=== PATIENT | male | born 1975 | race Caucasian/White ===

== ENCOUNTER 2018-06-20 07:27 | Day surgery (SDC) | payer BC ==
[~2018-06-20 07:27] MED LIST: CEFAZOLIN 2 GM/50 ML (PMX) 50 ML IVPB; SOD CHLORIDE 0.9% 1,000 ML IV
[2018-06-20 08:43] LABS: ADD MAN DIFF? NO
[2018-06-20 08:46] LABS: BASOPHILS % 0.5 % (0.0-2.0); EOSINOPHILS # 0.1 10^3/ul (0.0-0.5); EOSINOPHILS % 1.7 % (0.0-7.0); HEMATOCRIT 40.7 % (42.0-52.0); LYMPHOCYTES % 31.7 % (15.0-51.0); MEAN CORPUSCULAR HEMOGLOBIN 29.8 pg (29.0-33.0); MEAN CORPUSCULAR HGB CONC 34.4 g/dl (32.0-37.0); MEAN CORPUSCULAR VOLUME 86.6 fl (82.0-101.0); MEAN PLATELET VOLUME 11.7 fl (7.4-10.4); MONOCYTE # 0.5 10^3/ul (0.3-0.9); MONOCYTES % 7.9 % (0.0-11.0); NEUTROPHIL # 3.7 10^3/ul (1.6-7.5); NEUTROPHILS % 57.7 % (39.0-77.0); PLATELET COUNT 227 10^3/UL (140-415); RED CELL DISTRIBUTION WIDTH 12.1 % (11.5-14.5)
[2018-06-20 08:46] LABS: WHITE BLOOD COUNT 6.4 10^3/ul (4.8-10.8)
[2018-06-20 09:01] LABS: ALANINE AMINOTRANSFERASE 28 IU/L (13-69); ALBUMIN 4.4 g/dl (3.3-4.9); ALBUMIN/GLOBULIN RATIO 1.33; ALKALINE PHOSPHATASE 34 IU/L (42-121); ANION GAP 14 (8-16); ASPARTATE AMINO TRANSFERASE 20 IU/L (15-46); BILIRUBIN,INDIRECT 0.5 mg/dl (0-1.1); BILIRUBIN,TOTAL 0.5 mg/dl (0.2-1.3); BLOOD UREA NITROGEN 16 mg/dl (7-20); CALCIUM 9.4 mg/dl (8.4-10.2); CARBON DIOXIDE 25 mmol/L (21-31); CHLORIDE 107 mmol/L (97-110); CREATININE 0.83 mg/dl (0.61-1.24); GLUCOSE 105 mg/dl (70-220); POTASSIUM 4.3 mmol/L (3.5-5.1); SODIUM 142 mmol/L (135-144); TOTAL PROTEIN 7.7 g/dl (6.1-8.1)
[2018-06-20 09:05] LABS: INR 0.89; PARTIAL THROMBOPLASTIN TIME 31.2 Sec (25.0-35.0); PROTIME 12.1 Sec (11.9-14.9); PT RATIO 0.9
[2018-06-20] MEDS ORDERED: ROCURONIUM 50 MG INJ (09:17)
[2018-06-20] MEDS ORDERED: NEOSTIGMINE 3 MG/3 ML SYRINGE (09:17)
[2018-06-20] MEDS ORDERED: ONDANSETRON 4 MG INJ ×2 (09:17→11:21)
[2018-06-20] MEDS ORDERED: GLYCOPYRROLATE 0.4 MG INJ (09:17)
[2018-06-20] MEDS ORDERED: FENTAnyl 50 MCG/ML VIAL (09:17)
[2018-06-20] MEDS ORDERED: CEFAZOLIN 1 GM INJ (09:17)
[2018-06-20] MEDS ORDERED: DEXAMETHASONE 4 MG/ML 1 ML INJ (09:17)
[2018-06-20] MEDS ORDERED: MIDAZOLAM 1 MG/ML 2 ML INJ (09:17)
[2018-06-20] MEDS ORDERED: PROPOFOL 20 ML (09:17)
[2018-06-20] MEDS ORDERED: BUPIVACAINE 0.25% (MPF) 30 ML INJ ×2 (09:18→09:59)
[2018-06-20] MEDS ORDERED: POLYMYXIN/BACITRACIN 1L IRRIG (09:59)
[2018-06-20] MEDS ORDERED: BACITRACIN 50000 UNITS INJ (10:08)
[2018-06-20] MEDS ORDERED: KETOROLAC 30 MG INJ (10:46)
[2018-06-20] MEDS ORDERED: SUGAMMADEX SODIUM 200 MG/2 ML VIAL IV (11:00)
[2018-06-20] MEDS ORDERED: HYDROmorphONE 1 MG/5 ML IV SYRINGE IV ×2 (11:21→11:30)
[2018-06-20] MEDS: HYDROmorphONE 1 MG/5 ML IV SYRINGE IV ×2 (11:25→11:33)
[2018-06-20] MEDS: ONDANSETRON 4 MG INJ IV (11:25)
[2018-06-20] MEDS ORDERED: ALBUTEROL 0.083% (NEB) 2.5 MG/3 ML AMP HHN (11:30)
[2018-06-20] MEDS ORDERED: FENTAnyl 50 MCG/ML VIAL IV ×3 (11:30)
[2018-06-20] MEDS ORDERED: EPHEDrine SULFATE 50 MG/5 ML SYG IV (11:30)
[2018-06-20] MEDS ORDERED: MEPERIDINE 25 MG INJ IV (11:30)
[2018-06-20] MEDS ORDERED: LABETALOL HCL 20MG INJ IV (11:30)
[2018-06-20] MEDS ORDERED: MIDAZOLAM 1 MG/ML 2 ML INJ IV (11:30)
[2018-06-20] MEDS ORDERED: TRIMETHOBENZAMIDE 100 MG/ML VIAL IM (11:30)
[2018-06-20] MEDS ORDERED: OXYCODONE/ACETAMINOPHEN (5/325) TAB PO (11:30)
[2018-06-20] MEDS ORDERED: hydrALAzine 20 MG INJ IV (11:30)
[2018-06-20] MEDS ORDERED: IPRATROPIUM (NEB) 0.5 MG/2.5 ML AMP HHN (11:30)
[2018-06-20] MEDS ORDERED: DIPHENHYDRAMINE 50 MG INJ IV (11:30)
[2018-06-20] MEDS: OXYCODONE/ACETAMINOPHEN (5/325) TAB PO (11:39)
[2018-06-20] MEDS: HYDROCODONE/APAP (5/325) TAB PO (13:20)
== END 2018-06-20 13:23 | disposition home or self-care (01) ==
LOC: SDS 07:27
DX: K40.30 Unilateral inguinal hernia, with obstruction, without gangrene, not specified as recurrent (principal)
CPT/HCPCS: 49507; 80053; 85025; 85610; 85730; 88307